=== PATIENT | male | born 1990 | race Caucasian/White ===

== ENCOUNTER 2020-06-16 03:37 | Emergency (ER) | payer OTHER, SELFPAY ==
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
--- NOTE | 2020-06-16 03:41 | DI.RAD.S_ITS ---
PROCEDURE: XR ELBOW RT MIN 3V INDICATIONS: trauma TECHNIQUE: 3 views of the elbow were acquired. COMPARISON: None. FINDINGS: Bones: No fractures or dislocations. No suspicious bony lesions. Soft tissues: No elbow joint effusion. No suspicious soft tissue calcifications. IMPRESSION: No fracture. No osseous lesion. If symptoms and/or clinical suspicion for pathology persists, further assessment with repeat radiographs (7-10 days) or advanced imaging (e.g. CT, MRI or bone scan) may be helpful. Dictated by: Cara Steiner MD, PhD on 06/16/2020 at 8:52 Approved by: Cara Steiner MD, PhD on 06/16/2020 at 8:52
[2020-06-16 03:45] VITALS: BP 153/83; PULSE 96; RESP 15; TEMP 37.5; O2SAT 98; BMI 28.2
[2020-06-16] MEDS: ACETAMINOPHEN 325 MG TABLET PO (03:46)
[2020-06-16] MEDS: IBUPROFEN 400 MG TABLET PO (03:46)
== END 2020-06-16 04:33 | disposition home or self-care (01) ==
LOC: ED 04:28
PROVIDERS: Emergency Provider Emergency Medicine
DX: S50.01XA Contusion of right elbow, initial encounter (principal); W19.XXXA Unspecified fall, initial encounter
CPT/HCPCS: 73080; 99283

== ENCOUNTER 2020-06-19 18:40 | Emergency (ER) | payer OTHER, SELFPAY ==
[2020-06-19 18:56] VITALS: PULSE 85; RESP 14; TEMP 36.8; O2SAT 98; BMI 28.2
--- NOTE | 2020-06-19 19:19 | ED.WOUNDLAC ---
HPI - Wound/Laceration General Chief Complaint: Wound/Laceration Stated Complaint: Right Elbow Pain and Swelling Time Seen by Provider: 06/19/20 19:01 Source: patient Mode of arrival: Ambulatory Limitations: no limitations History of Present Illness HPI narrative: 30-year-old otherwise healthy male who was seen here in the emergency department several days ago for what was reported to be a right elbow injury. Had an x-ray which did not show any fractures. 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 The initial injury was at the end of last month. He states that about 2 weeks after the injury he had a swelling of his right elbow. He has a family member who is a physician who told him that he had a bursitis. He states that that swelling has somewhat improved however over the past day or so has had increasing redness around the area. He again was evaluated by his family member who started him on Keflex. He outlined the area with a black marker. He has only had 1.5 days of the course of antibiotics. No fevers. He can bend his elbow without discomfort in the joint. Does have some limited range of motion secondary to the swelling. No wrist pain. Related Data Previous Rx's Medication Instructions Recorded sulfamethoxazole-trimethoprim 1 tab PO BID 14 Days #28 tab 06/19/20 [Bactrim DS] Allergies Allergy/AdvReac Type Severity Reaction Status Date / Time No Known Drug Allergies Allergy Verified 06/16/20 03:49 Review of Systems Constitutional Constitutional: Denies fever(s) Cardiovascular Cardiovascular: Denies chest pain and Denies dyspnea Respiratory Respiratory: Denies dyspnea Gastrointestinal Gastrointestinal: Denies abdominal pain Musculoskeletal Musculoskeletal: Denies tingling Comments: Right elbow pain and swelling Integumentary/Breasts Comments: Redness around the right elbow Neurologic Neurologic: Denies behavioral changes and Denies tingling Psychiatric Psychiatric: Denies behavioral changes Hematologic/Lymphatic Hematologic/Lymphatic: Denies easy bleeding and Denies easy bruising Patient History Medical History Healthy adult (Acute) Social History Smoking Status: Never smoker Smoking Status: Never smoker alcohol intake frequency: 0-2 drinks per day Substance Use Type: does not use Exam Initial Vital Signs Initial Vital Signs: Vital Signs Temperature 98.3 F 06/19/20 18:56 Pulse Rate 85 06/19/20 18:56 Respiratory Rate 14 06/19/20 18:56 Pulse Oximetry 98 06/19/20 18:56 Const General: cooperative and comfortable Limitations: mental status not altered HENAK Head: normal to inspection and normocephalic Resp Effort & Inspection: normal respiratory effort Cardio Pulses: radial pulses present on the right Skin Other: Patient with redness and warmth around the right elbow. No drainage. Neuro Sensory Exam: no sensory deficits noted Extrem Other: Patient does have swelling encompassing most of the posterior aspect of the right elbow. He is able to flex and extend the right elbow with minimal discomfort. The right wrist and right shoulder unremarkable. Psych Appearance: grossly normal and well kempt Course Orders Ordered: Discontinued Medications Trimethoprim/Sulfamethoxazole (Bactrim Ds) 1 tab PO NOW ONE Stop: 06/19/20 19:26 Last Admin: 06/19/20 19:34 Dose: 1 tab Documented by: ROMAIN Vital Signs Vital signs: Vital Signs - 8 hr 06/19/20 18:56 Temperature 98.3 F Pulse Rate 85 Respiratory Rate 14 Pulse Oximetry 98 MDM - Wound/Laceration MDM Narrative Medical decision making narrative: Low suspicion for fracture. I feel we can hold on further radiologic studies. Does have redness and swelling and warmth around his right elbow concerning for cellulitis. He has only had 1.5 days of the Keflex that was prescribed to him by family member. I have low suspicion for abscess. Feel we should add Bactrim to his course of antibiotics to treat for a septic bursitis. He was given his 1st dose here in the emergency department. Was given return precautions and follow-up instructions. He expressed understanding and agreement. Discharge Plan Departure Patient Disposition: Home Clinical Impression: Septic bursitis of elbow Qualifiers: Laterality: right Qualified Code(s): M71.121 - Other infective bursitis, right elbow Discharge Date/Time: 06/19/20 19:38 Instructions: DI for Bursitis Activity Restrictions/Additional Instructions: Recommend that you continue to take the Keflex that she started yesterday. The remainder of the prescription for the new antibiotic was electronically transmitted to [facility]. Take it as directed. You can shower like normal. Return to the emergency department for any new or worsening symptoms like we discussed. Prescriptions: New sulfamethoxazole-trimethoprim [Bactrim DS] 800-160 mg tablet 1 tab PO BID 14 Days Qty: 28 RF: 0
[2020-06-19] MEDS: TRIMETH/SULFA 160/800 (DS) TABLET 1 TAB PO (19:34)
== END 2020-06-19 19:38 | disposition home or self-care (01) ==
PROVIDERS: Emergency Provider Emergency Medicine
DX: M71.121 Other infective bursitis, right elbow (principal); Y99.0 Civilian activity done for income or pay
CPT/HCPCS: 99283

== ENCOUNTER 2020-06-20 13:51 | Emergency (ER) | payer OTHER, SELFPAY ==
[2020-06-20 13:53] VITALS: PULSE 127; RESP 22; TEMP 38.2; O2SAT 99
[2020-06-20 13:55] VITALS: BP 119/66
--- NOTE | 2020-06-20 13:58 | DI.RAD.S_ITS ---
PROCEDURE: XR CHEST 1V INDICATIONS: suspected sepsis TECHNIQUE: One view of the chest was acquired. COMPARISON: None. FINDINGS: Surgical changes and devices: None. Lungs and pleura: On this semiupright portable chest examination, no large pneumothorax or large pleural effusions are seen. No focal infiltrates are seen. Mediastinum: Mediastinal contours appear normal. Heart size is normal. Bones and chest wall: No suspicious bony lesions. Overlying soft tissues appear unremarkable. IMPRESSION: Clear lungs, without focal infiltrates. Dictated by: Michael Roach M.D. on 06/20/2020 at 13:45 Approved by: Michael Roach M.D. on 06/20/2020 at 13:46
--- NOTE | 2020-06-20 14:04 | ED_ITS ---
HPI - Fever General Chief Complaint: Fever Stated Complaint: fever/chills,here yesterday Time Seen by Provider: 06/20/20 14:04 Source: patient Mode of arrival: Ambulatory History of Present Illness HPI Narrative: 30-year-old otherwise healthy gentleman who presents now for his 3rd visit for elbow pain. Initial injury was sustained at work the with a fall and contusion to that elbow on June 02. Was seen in the emergency department on June 16 with x-rays done, small effusion in the elbow and no evidence of an elective non bursitis at that time. Returned on June 19 with a septic bursitis. He had started Keflex and Septra was added. He returns today noting fevers, chills and rigors all night with no decrease to the redness around the elbow. Does have continued full and nontender range of motion at the elbow suggesting no joint involvement. Related Data Previous Rx's Medication Instructions Recorded sulfamethoxazole-trimethoprim 1 tab PO BID 14 Days #28 tab 06/19/20 [Bactrim DS] Allergies Allergy/AdvReac Type Severity Reaction Status Date / Time No Known Drug Allergies Allergy Verified 06/16/20 03:49 Review of Systems Review of Systems Narrative: Pertinent positive and negative findings as per HPI Remainder of review of systems is otherwise unremarkable for Constitutional: weakness ENT: No sore throat, neck pain, ear pain CV: Chest pain, palpitations, dyspnea on exertion Respiratory: Cough, wheeze, dyspnea GI: Nausea, vomiting, diarrhea, change in bowel habits, black or bloody stools : Dysuria, hematuria, flank pain MS: Muscle weakness, numbness, joint swelling or warmth Neuro: Syncope, dizziness, tingling Patient History Medical History Healthy adult (Acute) Social History Smoking Status: Never smoker Smoking Status: Never smoker alcohol intake frequency: 0-2 drinks per day Substance Use Type: does not use Exam Narrative Exam Narrative: General: Flushed but in no acute distress. Able to give a complete and coherent history. Well-nourished well-developed HEENT: Moist mucous membranes, mildly injected sclera with reactive pupils, Neck: supple Respiratory: Lungs are clear to auscultation, no wheezing no rales no rhonchi. Full and symmetrical air movement Cardiac: Regular rate and rhythm no murmurs no bruits Abdomen: Soft nontender good bowel tones, no flank pain Skin: Warm and dry, erythema based around the right olecranon, minor healing skin breakdown as the reasonable source of a developing cellulitis. Full and nontender range of motion shoulder elbow wrist and fingers on the right side and completely neurovascularly intact. He has no axillary adenopathy. Edges of the cellulitis had been outlined yesterday and are clearly spreading beyond that with 3 days of Keflex and 24 hours of Bactrim on board. Neurologic: Grossly neurologically intact with no obvious asymmetries or abnormalities Extremities: well perfused Psych: Cooperative, appropriate insight and affect Initial Vital Signs Initial Vital Signs: Vital Signs Temperature 100.8 F H 06/20/20 13:53 Pulse Rate 127 H 06/20/20 13:53 Respiratory Rate 22 06/20/20 13:53 Pulse Oximetry 99 06/20/20 13:53 Course Orders Ordered: ED Orders 06/20/20 13:58 XR chest 1V Stat EKG-12 Lead Stat RT Consult Eval and Treat Now 06/20/20 14:05 Complete Blood Count AUTO DIFF Stat Comprehensive Metabolic Panel Stat Lactate (Lactic Acid) Stat Lipase Stat Partial Thromboplastin Time Stat Procalcitonin Stat Prothrombin Time INR Stat 06/20/20 14:30 Blood Culture Stat 06/20/20 14:43 Urine Culture Stat Urine Microscopic Stat Discontinued Medications Sodium Chloride (Normal Saline 0.9%) 1,000 mls @ 1,000 mls/hr IV BOLUS ONE Stop: 06/20/20 14:57 Last Infusion: 06/20/20 15:21 Dose: 0 mls/hr Documented by: Admin: 06/20/20 14:15 Dose: 1,000 mls/hr Documented by: JENS Ceftriaxone Sodium/Dextrose (Rocephin) 2 gm in 50 mls @ 100 mls/hr IV NOW ONE Stop: 06/20/20 14:48 Last Infusion: 06/20/20 15:12 Dose: 0 mls/hr Documented by: Admin: 06/20/20 14:36 Dose: 100 mls/hr Documented by: JENS Vancomycin HCl/Dextrose (Vancomycin) 1,500 mg in 300 mls @ 200 mls/hr IV NOW ONE Stop: 06/20/20 15:54 Last Infusion: 06/20/20 16:07 Dose: 0 mls/hr Documented by: Admin: 06/20/20 14:36 Dose: 200 mls/hr Documented by: JENS Ketorolac Tromethamine (Toradol) 15 mg IV NOW ONE Stop: 06/20/20 15:43 Last Admin: 06/20/20 15:46 Dose: 15 mg Documented by: JENS Vital Signs Vital signs: Vital Signs - 8 hr 06/20/20 13:53 06/20/20 13:55 06/20/20 15:12 Temperature 100.8 F H Pulse Rate 127 H 105 H Respiratory Rate 22 16 Blood Pressure 119/66 141/63 H Pulse Oximetry 99 99 MDM - Fever Medical Records Attestation: I reviewed the patient's medical records. Lab Data Attestation: I reviewed the patient's lab results. Result diagrams: 06/20/20 14:05 06/20/20 14:05 Labs: Lab Results 06/20/20 06/20/20 06/20/20 Range/Units 14:05 14:05 14:05 WBC 13.7 H (4.5-11.0) X10^3/uL RBC 4.72 (4.5-5.9) X10^6/uL Hgb 14.1 (13.5-17.5) g/dL Hct 41.0 (41-53) % MCV 86.8 (80-100) fL MCH 29.9 (26-34) PG MCHC 34.4 (30-36) % RDW 12.2 (11.6-14.8) % Plt Count 256 (150-400) X10^3/uL Neut % (Auto) 92.8 H (50-75) % Lymph % (Auto) 2.2 L (25-40) % Roosevelt % (Auto) 3.3 (3-14) % Eos % (Auto) 1.5 L (2-4) % Baso % (Auto) 0.2 (0-2) % Neut # (Auto) 51194 H (6870-3574) /uL Lymph # (Auto) 300 L (5272-6944) /uL Roosevelt # (Auto) 500 (0-900) /uL Eos # (Auto) 200 (0-450) /uL Baso # (Auto) 0 (0-100) /uL PT 14.5 H (10.1-12.7) SECONDS INR 1.3 (0.9-1.3) APTT 31 (26.4-36.2) SECONDS Sodium (137-145) mmol/L Potassium (3.4-5.1) mmol/L Chloride (98-107) mmol/L Carbon Dioxide (22-32) mmol/L BUN (9-20) mg/dL Creatinine (0.66-1.25) mg/dL Estimated GFR (>60) mL/min BUN/Creatinine Ratio (6-22) Glucose (70-100) mg/dL Lactate (0.7-2.1) mmol/L Calcium (8.4-10.2) mg/dL Total Bilirubin (0.2-1.3) mg/dL AST (17-59) IU/L ALT (<50) IU/L Alkaline Phosphatase (38-126) U/L Total Protein (6.3-8.2) g/dL Albumin (3.5-5.0) g/dL Globulin (1.7-4.1) g/dL Albumin/Globulin Ratio (1.0-2.8) Lipase (23-300) U/L Procalcitonin 0.72 H (<0.5) ng/mL Urine RBC (0-5/HPF) Urine WBC (0-5/HPF) Ur Squamous Epith Cells (0-5/HPF) Amorphous Sediment Urine Bacteria (None) Urine Mucus (Negative) Ur Culture Indicated? 06/20/20 06/20/20 06/20/20 Range/Units 14:05 14:05 14:43 WBC (4.5-11.0) X10^3/uL RBC (4.5-5.9) X10^6/uL Hgb (13.5-17.5) g/dL Hct (41-53) % MCV (80-100) fL MCH (26-34) PG MCHC (30-36) % RDW (11.6-14.8) % Plt Count (150-400) X10^3/uL Neut % (Auto) (50-75) % Lymph % (Auto) (25-40) % Roosevelt % (Auto) (3-14) % Eos % (Auto) (2-4) % Baso % (Auto) (0-2) % Neut # (Auto) (3142-3040) /uL Lymph # (Auto) (8385-5824) /uL Roosevelt # (Auto) (0-900) /uL Eos # (Auto) (0-450) /uL Baso # (Auto) (0-100) /uL PT (10.1-12.7) SECONDS INR (0.9-1.3) APTT (26.4-36.2) SECONDS Sodium 134 L (137-145) mmol/L Potassium 3.4 (3.4-5.1) mmol/L Chloride 98 (98-107) mmol/L Carbon Dioxide 26 (22-32) mmol/L BUN 19 (9-20) mg/dL Creatinine 1.39 H (0.66-1.25) mg/dL Estimated GFR > 60.0 (>60) mL/min BUN/Creatinine Ratio 13.7 (6-22) Glucose 126 H (70-100) mg/dL Lactate 1.3 (0.7-2.1) mmol/L Calcium 9.3 (8.4-10.2) mg/dL Total Bilirubin 0.9 (0.2-1.3) mg/dL AST 24 (17-59) IU/L ALT 23 (<50) IU/L Alkaline Phosphatase 86 (38-126) U/L Total Protein 7.6 (6.3-8.2) g/dL Albumin 4.4 (3.5-5.0) g/dL Globulin 3.2 (1.7-4.1) g/dL Albumin/Globulin Ratio 1.4 (1.0-2.8) Lipase 46 (23-300) U/L Procalcitonin (<0.5) ng/mL Urine RBC None seen (0-5/HPF) Urine WBC 5-10/hpf H (0-5/HPF) Ur Squamous Epith Cells 0-1 /hpf (0-5/HPF) Amorphous Sediment 1+ Urine Bacteria Few (2-10) H (None) Urine Mucus 2+ H (Negative) Ur Culture Indicated? 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 He is currently failing outpatient therapy with Keflex and Bactrim. Given ceftriaxone and vancomycin here in the emergency department. Heart rate has come down nicely. Pain is been adequately controlled. No evidence of sepsis. We discussed options for treatment and given the fact that he is otherwise young and healthy, lives close to the hospital and has reliable transportation to get back will discharge him home today with anticipation that he will return tomorrow. Will repeat ceftriaxone and based on labs tomorrow consider repeat vancomycin. Slight renal insufficiency will certainly need to be recheck tomorrow as well. Patient is are both comfortable with this plan. Asked them to return sometime around noon tomorrow for repeat blood work antibiotics. Discharge Plan Departure Patient Disposition: Home Clinical Impression: Septic bursitis of elbow Qualifiers: Laterality: right Qualified Code(s): M71.121 - Other infective bursitis, right elbow Cellulitis Qualifiers: Site of cellulitis: extremity Site of cellulitis of extremity: upper extremity Laterality: right Qualified Code(s): L03.113 - Cellulitis of right upper limb Instructions: DI for Cellulitis -- Adult Activity Restrictions/Additional Instructions: Thank you for coming in today The bursa and the skin around your elbow are infected but the elbow joint itself seems to be spared. You have had 3 days of Keflex and 24 hours of Bactrim and your symptoms are still not improving completely. Your blood work does show evidence of infection and mild dehydration. In the emergency room today received ceftriaxone and vancomycin. Both of these are good for 24 hours. I am going to send you home today but want you back around noon tomorrow. I want to repeat blood work, reexamined you and give you at least 1 additional dose of IV antibiotics. Using 400 mg of ibuprofen (2 odrp-[id number]-[id number] pills) and 1 Tylenol every 6 hours can be very helpful in controlling pain and fever. If you feel that you are getting worse this evening please return sooner than noon tomorrow Prescriptions: No Action sulfamethoxazole-trimethoprim [Bactrim DS] 800-160 mg tablet 1 tab PO BID 14 Days Qty: 28 RF: 0
[2020-06-20 14:15] LABS: Add Manual Diff / Slide Review NO; Basophils Absolute Auto 0 /uL (0-100); Basophils Percent Auto 0.2 % (0-2); Eosinophils Absolute Auto 200 /uL (0-450); Eosinophils Percent Auto 1.5 % (2-4); Hemoglobin 14.1 g/dL (13.5-17.5); Lymphocytes Absolute Auto 300 /uL (1100-4500); Lymphocytes Percent Auto 2.2 % (25-40); Mean Corpuscular HGB Conc 34.4 % (30-36); Mean Corpuscular Hemoglobin 29.9 PG (26-34); Mean Corpuscular Volume 86.8 fL (80-100); Monocytes Absolute Auto 500 /uL (0-900); Monocytes Percent Auto 3.3 % (3-14); Neutrophils Absolute Auto 12800 /uL (1500-7000); Neutrophils Percent Auto 92.8 % (50-75); Platelet Count 256 X10^3/uL (150-400); Red Blood Cell Count 4.72 X10^6/uL (4.5-5.9); Red Cell Distribution Width 12.2 % (11.6-14.8); White Blood Cell Count 13.7 X10^3/uL (4.5-11.0)
[2020-06-20] MEDS: SODIUM CHLORIDE 0.9% 1,000 ML 1000 ML IV (14:15)
[2020-06-20 14:22] LABS: INR 1.3 (0.9-1.3); Prothrombin Time 14.5 SECONDS (10.1-12.7)
[2020-06-20 14:24] LABS: PTT Partial Thromboplastin Tim 31 SECONDS (26.4-36.2)
[2020-06-20 14:28] LABS: Alanine Aminotransferase 23 IU/L (<50); Albumin 4.4 g/dL (3.5-5.0); Albumin Globulin Ratio 1.4 (1.0-2.8); Alkaline Phosphatase 86 U/L (38-126); Aspartate Aminotransferase 24 IU/L (17-59); BUN Creatinine Ratio 13.7 (6-22); Bilirubin Total 0.9 mg/dL (0.2-1.3); Blood Urea Nitrogen 19 mg/dL (9-20); Calcium 9.3 mg/dL (8.4-10.2); Carbon Dioxide 26 mmol/L (22-32); Chloride 98 mmol/L (98-107); Estimated Glomerular Filt Rate > 60.0 mL/min (>60); Globulin 3.2 g/dL (1.7-4.1); Glucose 126 mg/dL (70-100); HEMOLYSIS < 15 (0-50); Lipase 46 U/L (23-300); Potassium 3.4 mmol/L (3.4-5.1); Sodium 134 mmol/L (137-145); Total Protein 7.6 g/dL (6.3-8.2)
[2020-06-20 14:29] LABS: Lactate (Lactic Acid) 1.3 mmol/L (0.7-2.1)
[2020-06-20] MEDS: VANCOMYCIN 1,500 MG/300 ML FROZ.PIGGY 200 MG IV (14:36)
[2020-06-20] MEDS: CEFTRIAXONE 2 GM/50 ML FROZ.PIGGY IV (14:36)
[2020-06-20 14:42] LABS: Procalcitonin 0.72 ng/mL (<0.5)
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
[2020-06-20 15:12] VITALS: BP 141/63; PULSE 105; RESP 16; O2SAT 99
[2020-06-20 15:21] LABS: RBC Urine None Seen (0-5/HPF)
[2020-06-20 15:39] LABS: Amorphous Sediment Urine 1+; Bacteria Urine Few (2-10); Culture Indicated Urine Specimen Cultured; Mucus Urine 2+ (Negative); Squamous Epithelial Cell Urine 0-1 /HPF (0-5/HPF); WBC Urine 5-10/HPF (0-5/HPF)
[2020-06-20] MEDS: KETOROLAC 60 MG/2 ML VIAL 15 MG IV (15:46)
== END 2020-06-20 16:44 | disposition home or self-care (01) ==
PROVIDERS: Emergency Provider Emergency Medicine
DX: M71.121 Other infective bursitis, right elbow (principal); L03.113 Cellulitis of right upper limb; R50.9 Fever, unspecified; Y99.0 Civilian activity done for income or pay
CPT/HCPCS: 36415; 71045; 80053; 81003; 81015; 83605; 83690; 84145; 85025; 85610; 85730; 87040; 87086; 93005; 93010; 96365; 96366; 96367; 96375; 99284; J0696; J1885

== ENCOUNTER 2020-06-21 12:55 | Inpatient (IN) | payer OTHER, SELFPAY ==
[2020-06-21] VITALS (17 sets, daily range): BP systolic 87–134; BP diastolic 47–82; PULSE 58–125; RESP 9–20; TEMP 35.8–38.9; O2SAT 90–99; BMI 25.6
--- NOTE | 2020-06-21 13:28 | ED_ITS ---
HPI - Recheck/Abnormal Lab/Rx General Chief Complaint: Recheck/Abnormal Lab/Rx Stated Complaint: right elbow injury yest. needs iv's Time Seen by Provider: 06/21/20 13:23 Source: patient Mode of arrival: Ambulatory History of Present Illness HPI narrative: 30-year-old otherwise healthy gentleman who presents for repeat antibiotics after a 3rd visit yesterday for elbow pain and now increasing erythema. Initial injury was sustained at work the with a fall and contusion to that elbow on June 02. Was seen in the emergency department on June 16 with x-rays done, small effusion in the elbow and no evidence of an elective non bursitis at that time. Returned on June 19 with a septic bursitis. He had started Keflex and Septra was added. He returns 06/21 noting fevers, chills and rigors all night with no decrease to the redness around the elbow. Does have continued full and nontender range of motion at the elbow suggesting no joint involvement. He was given 2 g of IV ceftriaxone and vancomycin, lab work showed a white blood cell count 13.7 with left shift and a creatinine at 1.39 (no comparison for baseline). We debated hospital admission yesterday for failed oral antibiotic treatment for presumed septic bursitis without joint involvement, but decided to have him return to the emergency room did day and repeat labs and antibiotics. Notes continued fevers and the elbow itself is more swollen and more erythem atous today. He remains tachycardic. Today, he incidentally notes that his back is hurting more as he is moving about the bed cooperating with the physical exam. He notes that it is his lumbar spin e started centrally and now involves bilateral paraspinous areas. He is noting that he is having difficulty standing for extended periods and over the last day or to says that he has had more difficulty with starting his urine stream. The low back pain started about the same time and the cellulitic portion to the elbow pain started. He did not and mention did previously as everything else has been hurting so much with his fevers, and he is indeed was simply be related. And I am concerned that the in back pain, and knee were no and no and moderate presentation for the olecranon bursitis are all simultaneous. Related Data Previous Rx's Medication Instructions Recorded sulfamethoxazole-trimethoprim 1 tab PO BID 14 Days #28 tab 06/19/20 [Bactrim DS] Allergies Allergy/AdvReac Type Severity Reaction Status Date / Time No Known Drug Allergies Allergy Verified 06/16/20 03:49 Review of Systems Review of Systems Narrative: Remainder of review of systems including constitutional, ENT, card iovascular, respiratory, GI, , musculoskeletal, skin, neurologic and psychiatric systems reviewed and are unremarkable except as noted in HPI. Patient History Medical History Healthy adult (Acute) Septic bursitis of elbow (Acute) Social History Smoking Status: Never smoker Smoking Status: Never smoker alcohol intake frequency: 0-2 drinks per day Substance Use Type: does not use Exam Narrative Exam Narrative: General: Slightly flushed but in no acute distress. HEENT: Moist mucous membranes, normal sclera with reactive pupils, Neck: No JVD, supple Respiratory: Lungs are clear to auscultation, no wheezing no rales no rhonchi. Full and symmetrical air movement Cardiac: Tachycardic with regular rate and rhythm no murmurs Abdomen: Soft nontender good bowel tones, no flank pain Skin: Warm and dry, no rashes Neurologic: Grossly neurologically intact with no obvious asymmetries or abnormalities Extremities: Increased erythema and fluctuance at the right elbow still with no joint tenderness with flexion or extension spine: Some tenderness midline, L3 to L5 level with bilateral paraspinous lumbar tenderness. Pain in the low back with leg extension bilaterally. No saddle paresthesia. Psych: Cooperative, no evidence of altered mental status Initial Vital Signs Initial Vital Signs: Vital Signs Pulse Rate 125 H 06/21/20 13:04 Respiratory Rate 16 06/21/20 13:04 Blood Pressure 134/78 06/21/20 13:04 Pulse Oximetry 99 06/21/20 13:04 Course Orders Ordered: ED Orders 06/21/20 13:18 Complete Blood Count AUTO DIFF Stat Comprehensive Metabolic Panel Stat Lactate (Lactic Acid) Stat 06/21/20 13:37 Blood Culture Stat 06/21/20 13:50 COVID19 -ED/INPAT/OR/L&D Stat 06/21/20 13:56 MR lumbar spine wo/w con Stat Hydromorphone HCl (Dilaudid) 0.5 mg IV Q1HR PRN PRN Reason: pain Last Admin: 06/21/20 15:56 Dose: 0.5 mg Documented by: HEIDE Lactated Ringer's (Lactated Ringers) 1,000 mls @ 42 mls/hr IV CONT BLAINE Last Admin: 06/21/20 15:55 Dose: 42 mls/hr Documented by: HEIDE Discontinued Medications Acetaminophen (Tylenol) 975 mg PO NOW ONE Stop: 06/21/20 15:46 Last Admin: 06/21/20 15:56 Dose: 975 mg Documented by: HEIDE Ceftriaxone Sodium/Dextrose (Rocephin) 2 gm in 50 mls @ 100 mls/hr IV NOW ONE Stop: 06/21/20 13:38 Last Infusion: 06/21/20 14:54 Dose: 0 mls/hr Documented by: Admin: 06/21/20 13:52 Dose: 100 mls/hr Documented by: HEIDE Sodium Chloride (Normal Saline 0.9%) 1,000 mls @ 1,000 mls/hr IV BOLUS ONE Stop: 06/21/20 14:23 Last Infusion: 06/21/20 15:51 Dose: 0 mls/hr Documented by: Admin: 06/21/20 14:01 Dose: 1,000 mls/hr Documented by: HEIDE Vancomycin HCl/Dextrose (Vancomycin) 1,500 mg in 300 mls @ 200 mls/hr IV NOW ONE Stop: 06/21/20 15:29 Last Admin: 06/21/20 14:53 Dose: 200 mls/hr Documented by: HEIDE Scopolamine (Transderm-Scop) 1 patch TOP NOW ONE Stop: 06/21/20 15:46 Last Admin: 06/21/20 15:55 Dose: 1 patch Documented by: HEIDE Vancomycin HCl (Vancomycin Per Pharmacy) 1 request MISC NOW ONE Stop: 06/21/20 13:25 Vital Signs Vital signs: Vital Signs - 8 hr 06/21/20 13:04 06/21/20 13:17 06/21/20 15:34 Temperature 98.9 F Pulse Rate 125 H 108 H Respiratory Rate 16 14 Blood Pressure 134/78 118/57 L Pulse Oximetry 99 99 MDM - Recheck/Abnormal Lab/Rx Medical Records Attestation: I reviewed the patient's medical records. Lab Data Attestation: I reviewed the patient's lab results. Result diagrams: 06/21/20 13:18 06/21/20 13:18 Labs: Lab Results 06/21/20 06/21/20 06/21/20 Range/Units 13:18 13:18 13:18 WBC 9.6 (4.5-11.0) X10^3/uL RBC 4.63 (4.5-5.9) X10^6/uL Hgb 13.9 (13.5-17.5) g/dL Hct 40.4 L (41-53) % MCV 87.2 (80-100) fL MCH 30.0 (26-34) PG MCHC 34.4 (30-36) % RDW 12.3 (11.6-14.8) % Plt Count 248 (150-400) X10^3/uL Neut % (Auto) 87.9 H (50-75) % Lymph % (Auto) 3.9 L (25-40) % [place] % (Auto) 3.2 (3-14) % Eos % (Auto) 4.9 H (2-4) % Baso % (Auto) 0.1 (0-2) % Neut # (Auto) 8400 H (7782-6735) /uL Lymph # (Auto) 400 L (4168-2961) /uL [place] # (Auto) 300 (0-900) /uL Eos # (Auto) 500 H (0-450) /uL Baso # (Auto) 0 (0-100) /uL Sodium 133 L (137-145) mmol/L Potassium 4.0 (3.4-5.1) mmol/L Chloride 97 L (98-107) mmol/L Carbon Dioxide 28 (22-32) mmol/L BUN 13 (9-20) mg/dL Creatinine 1.24 (0.66-1.25) mg/dL Estimated GFR > 60.0 (>60) mL/min BUN/Creatinine Ratio 10.5 (6-22) Glucose 150 H (70-100) mg/dL Lactate 2.2 H (0.7-2.1) mmol/L Calcium 8.8 (8.4-10.2) mg/dL Total Bilirubin 0.6 (0.2-1.3) mg/dL AST 26 (17-59) IU/L ALT 22 (<50) IU/L Alkaline Phosphatase 71 (38-126) U/L Total Protein 7.1 (6.3-8.2) g/dL Albumin 3.9 (3.5-5.0) g/dL Globulin 3.2 (1.7-4.1) g/dL Albumin/Globulin Ratio 1.2 (1.0-2.8) COVID-19 PCR (Negative) 06/21/20 06/21/20 Range/Units 13:50 15:50 WBC (4.5-11.0) X10^3/uL RBC (4.5-5.9) X10^6/uL Hgb (13.5-17.5) g/dL Hct (41-53) % MCV (80-100) fL MCH (26-34) PG MCHC (30-36) % RDW (11.6-14.8) % Plt Count (150-400) X10^3/uL Neut % (Auto) (50-75) % Lymph % (Auto) (25-40) % [place] % (Auto) (3-14) % Eos % (Auto) (2-4) % Baso % (Auto) (0-2) % Neut # (Auto) (5507-2105) /uL Lymph # (Auto) (2448-2480) /uL Saunders # (Auto) (0-900) /uL Eos # (Auto) (0-450) /uL Baso # (Auto) (0-100) /uL Sodium (137-145) mmol/L Potassium (3.4-5.1) mmol/L Chloride (98-107) mmol/L Carbon Dioxide (22-32) mmol/L BUN (9-20) mg/dL Creatinine (0.66-1.25) mg/dL Estimated GFR (>60) mL/min BUN/Creatinine Ratio (6-22) Glucose (70-100) mg/dL Lactate 1.3 (0.7-2.1) mmol/L Calcium (8.4-10.2) mg/dL Total Bilirubin (0.2-1.3) mg/dL AST (17-59) IU/L ALT (<50) IU/L Alkaline Phosphatase (38-126) U/L Total Protein (6.3-8.2) g/dL Albumin (3.5-5.0) g/dL Globulin (1.7-4.1) g/dL Albumin/Globulin Ratio (1.0-2.8) COVID-19 PCR Negative (Negative) Imaging Data MRI lumbar spine: Radiologist's Impression: FINDINGS: Image quality: Diagnostic, with note made of motion artifact. Alignment and curvature: There is normal bony alignment. Marrow: Marrow is of normal overall signal. No acute vertebral body compression fractures. No suspicious marrow enhancement. Spinal cord: Conus medullaris terminates at the L1 level. Visualized spinal cord demonstrates normal signal, without suspicious enhancement. Paraspinous soft tissues: No paravertebral masses or abnormal enhancement. T12-L1: Normal appearance. L1-L2: Normal appearance. L2-L3: Normal appearance. L3-L4: Normal appearance. L4-L5: The disc height and disk signal are well-preserved. Mild generalized disc bulge is seen. Mild facet joint hypertrophy is seen. Mild to moderate bilateral neural foraminal narrowing is seen. Minimal central canal narrowing is seen. L5-S1: The disc height and disc signal are relatively well preserved. Mild to moderate disc bulge is seen, which is eccentric to the right. Moderate bilateral neural foraminal narrowing is seen. No significant central canal narrowing is seen. IMPRESSION: No findings of discitis, osteomyelitis, or epidural abscess can be seen. No abnormal enhancement is seen. Focal premature degenerative change is seen inferiorly. Dictated by: Michael Roach M.D. on 06/21/2020 at 14:08 MDM Narrative Medical decision making narrative: 30-year-old gentleman who clearly is failing outpatient therapy including IV ceftriaxone and vancomycin for 24 hours for septic bursitis of the elbow. Today mentions back pain and in the setting of fever myalgias and a rather odd presentation for the elbow possibility of an epidural abscess is entertained. He will be going to the operating room to have the bursa cleaned out, have talked with Dr. Ginette Jones. Will check an MRI of the lumbar spine to confirm absence of an epidural abscess. He will be admitted to her service. Blood cultures, lactate labs are all redrawn today. Slightly increased creatinine yesterday will re-evaluate with fluid resuscitation today. White count is down from yesterday, lactic acid was slightly increased but has responded nicely to fluids, no evidence of epidural abscess on MRI. Patient is going to the operating room and will be admitted to Dr. Jones. Safe for transfer to the operating room Discharge Plan Departure Patient Disposition: Admitted As Inpatient Clinical Impression: Bursitis, olecranon Qualifiers: Laterality: right Qualified Code(s): M70.21 - Olecranon bursitis, right elbow Cellulitis Qualifiers: Site of cellulitis: extremity Site of cellulitis of extremity: upper extremity Laterality: left Qualified Code(s): L03.114 - Cellulitis of left upper limb Back pain Qualifiers: Back pain location: low back pain Chronicity: acute Back pain laterality: bilateral Sciatica presence: without sciatica Qualified Code(s): M54.5 - Low back pain
[2020-06-21 13:33] LABS: Add Manual Diff / Slide Review NO; Basophils Absolute Auto 0 /uL (0-100); Basophils Percent Auto 0.1 % (0-2); Eosinophils Absolute Auto 500 /uL (0-450); Eosinophils Percent Auto 4.9 % (2-4); Hematocrit 40.4 % (41-53); Hemoglobin 13.9 g/dL (13.5-17.5); Lymphocytes Absolute Auto 400 /uL (1100-4500); Lymphocytes Percent Auto 3.9 % (25-40); Mean Corpuscular HGB Conc 34.4 % (30-36); Mean Corpuscular Volume 87.2 fL (80-100); Monocytes Absolute Auto 300 /uL (0-900); Monocytes Percent Auto 3.2 % (3-14); Neutrophils Absolute Auto 8400 /uL (1500-7000); Neutrophils Percent Auto 87.9 % (50-75); Platelet Count 248 X10^3/uL (150-400); Red Blood Cell Count 4.63 X10^6/uL (4.5-5.9); Red Cell Distribution Width 12.3 % (11.6-14.8); White Blood Cell Count 9.6 X10^3/uL (4.5-11.0)
[2020-06-21 13:42] LABS: Alanine Aminotransferase 22 IU/L (<50); Albumin 3.9 g/dL (3.5-5.0); Albumin Globulin Ratio 1.2 (1.0-2.8); Alkaline Phosphatase 71 U/L (38-126); Aspartate Aminotransferase 26 IU/L (17-59); BUN Creatinine Ratio 10.5 (6-22); Bilirubin Total 0.6 mg/dL (0.2-1.3); Blood Urea Nitrogen 13 mg/dL (9-20); Calcium 8.8 mg/dL (8.4-10.2); Carbon Dioxide 28 mmol/L (22-32); Chloride 97 mmol/L (98-107); Estimated Glomerular Filt Rate > 60.0 mL/min (>60); Globulin 3.2 g/dL (1.7-4.1); Glucose 150 mg/dL (70-100); HEMOLYSIS < 15 (0-50); Sodium 133 mmol/L (137-145); Total Protein 7.1 g/dL (6.3-8.2)
[2020-06-21 13:43] LABS: Lactate (Lactic Acid) 2.2 mmol/L (0.7-2.1)
[2020-06-21] MEDS: CEFTRIAXONE 2 GM/50 ML FROZ.PIGGY IV (13:52)
--- NOTE | 2020-06-21 13:56 | DI.MRI.S_ITS ---
PROCEDURE: MR LUMBAR SPINE WO/W CON INDICATIONS: concern for epidural abscess (fever, tachy, new pain) TECHNIQUE: Noncontrast sagittal T1 spin echo and T2 fast spin echo, sagittal STIR, axial T1 and T2 fast spin echo through the lumbar spine. In cases with scoliosis, additional coronal T2 fast spin echo may be performed. After the administration of contrast, sagittal and axial T1 spin echo with fat saturation through the lumbar spine. COMPARISON: None. FINDINGS: Image quality: Diagnostic, with note made of motion artifact. Alignment and curvature: There is normal bony alignment. Marrow: Marrow is of normal overall signal. No acute vertebral body compression fractures. No suspicious marrow enhancement. Spinal cord: Conus medullaris terminates at the L1 level. Visualized spinal cord demonstrates normal signal, without suspicious enhancement. Paraspinous soft tissues: No paravertebral masses or abnormal enhancement. T12-L1: Normal appearance. L1-L2: Normal appearance. L2-L3: Normal appearance. L3-L4: Normal appearance. L4-L5: The disc height and disk signal are well-preserved. Mild generalized disc bulge is seen. Mild facet joint hypertrophy is seen. Mild to moderate bilateral neural foraminal narrowing is seen. Minimal central canal narrowing is seen. L5-S1: The disc height and disc signal are relatively well preserved. Mild to moderate disc bulge is seen, which is eccentric to the right. Moderate bilateral neural foraminal narrowing is seen. No significant central canal narrowing is seen. IMPRESSION: No findings of discitis, osteomyelitis, or epidural abscess can be seen. No abnormal enhancement is seen. Focal premature degenerative change is seen inferiorly. Dictated by: Michael Roach M.D. on 06/21/2020 at 14:08 Approved by: Michael Roach M.D. on 06/21/2020 at 14:11
[2020-06-21] MEDS: SODIUM CHLORIDE 0.9% 1,000 ML 1000 ML IV (14:01)
[2020-06-21 14:22] LABS: COVID19 -Nasal RAPID Negative (Negative)
[2020-06-21] MEDS: VANCOMYCIN 1,500 MG/300 ML FROZ.PIGGY 200 MG IV (14:53)
[2020-06-21 15:28] LABS: Reflexed Lactate in 2 Hours Y
[2020-06-21] MEDS: SCOPOLAMINE 1 PATCH TOP (15:55)
[2020-06-21] MEDS: LACTATED RINGERS 1,000 ML 42 ML IV (15:55)
[2020-06-21] MEDS: HYDROMORPHONE 0.5 MG INJ IV (15:56)
[2020-06-21] MEDS: ACETAMINOPHEN 325 MG TABLET 975 MG PO ×2 (15:56→20:54)
[2020-06-21 16:22] LABS: Lactate 2HR (Lactic Acid Rflx) 1.3 mmol/L (0.7-2.1)
[2020-06-21] MEDS: LACTATED RINGERS 1,000 ML 21 ML IV (16:37)
--- NOTE | 2020-06-21 17:49 | P.HP_ITS ---
History of Present Illness History of Present Illness Date Patient Seen: 06/21/20 Time Patient Seen: 17:49 Date of Onset of Symptoms: 06/02/20 Chief complaint: right elbow yest. 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 He was taking down a suspect at that time landed on his right elbow and sustained an abrasion over his right elbow. He noted the acute onset of right elbow pain. He subsequently has been to [facility] Emergency Room 4 times for follow- up for increasing right elbow pain swelling and erythema. He had x-rays on 06/16/2020. He has been treated with a course of several different kinds of oral antibiotics as well as more recently IV antibiotics. He notes progressive worsening of his right elbow pain and progressive swelling. He also notes low- grade fevers and chills at home. Patient History Medical History Healthy adult (Acute) Septic bursitis of elbow (Acute) Family & Social History Social History: household members spouse Tobacco & Substance use: Smoking Status Never smoker alcohol intake never alcohol intake frequency 0-2 drinks per day Substance Use Type does not use Meds Home Medications and Allergies Home Medications Medication Instructions Recorded Confirmed Type sulfamethoxazole-trimethoprim 1 tab PO BID 14 Days #28 tab 06/19/20 06/21/20 Rx [Bactrim DS] cephalexin 250 mg PO QID 06/21/20 06/21/20 History Allergies Allergy/AdvReac Type Severity Reaction Status Date / Time No Known Drug Allergies Allergy Verified 06/21/20 16:39 Review of Systems Review of Systems Narrative: Mild fevers, no specific chills, no injuries other than the right elb ow Exam Vital Signs (past 8 hours): - 06/21/20 13:04 06/21/20 13:17 06/21/20 15:34 Temperature 98.9 F Pulse Rate 125 H 108 H Respiratory Rate 16 14 Blood Pressure 134/78 118/57 L Pulse Oximetry 99 99 06/21/20 16:28 06/21/20 16:31 Temperature 102.1 F H Pulse Rate 98 H 105 H Respiratory Rate 14 16 Blood Pressure 114/82 118/56 L Pulse Oximetry 96 94 Oxygen Delivery Method Room Air Narrative Exam Narrative: HEENT is benign lungs are clear cor regular rate and rhythm abdomen soft and benign examination of his right upper extremity shows an abrasion over the right elbow which is healing there is erythema there is obvious swelling in the right olecranon bursa and fluctuance, he is neurologically intact distally has full range of motion into his wrist and fingers, there is no pain with gentle range of motion of the right elbow Objective Labs Result Diagrams: 06/21/20 13:18 06/21/20 13:18 Labs: Laboratory Results - last 24 hr 06/21/20 06/21/20 06/21/20 13:18 13:18 13:18 WBC 9.6 RBC 4.63 Hgb 13.9 Hct 40.4 L MCV 87.2 MCH 30.0 MCHC 34.4 RDW 12.3 Plt Count 248 Neut % (Auto) 87.9 H Lymph % (Auto) 3.9 L [place] % (Auto) 3.2 Eos % (Auto) 4.9 H Baso % (Auto) 0.1 Neut # (Auto) 8400 H Lymph # (Auto) 400 L [place] # (Auto) 300 Eos # (Auto) 500 H Baso # (Auto) 0 Sodium 133 L Potassium 4.0 Chloride 97 L Carbon Dioxide 28 BUN 13 Creatinine 1.24 Estimated GFR > 60.0 BUN/Creatinine Ratio 10.5 Glucose 150 H Lactate 2.2 H Calcium 8.8 Total Bilirubin 0.6 AST 26 ALT 22 Alkaline Phosphatase 71 Total Protein 7.1 Albumin 3.9 Globulin 3.2 Albumin/Globulin Ratio 1.2 COVID-19 PCR 06/21/20 06/21/20 13:50 15:50 WBC RBC Hgb Hct MCV MCH MCHC RDW Plt Count Neut % (Auto) Lymph % (Auto) [place] % (Auto) Eos % (Auto) Baso % (Auto) Neut # (Auto) Lymph # (Auto) [place] # (Auto) Eos # (Auto) Baso # (Auto) Sodium Potassium Chloride Carbon Dioxide BUN Creatinine Estimated GFR BUN/Creatinine Ratio Glucose Lactate 1.3 Calcium Total Bilirubin AST ALT Alkaline Phosphatase Total Protein Albumin Globulin Albumin/Globulin Ratio COVID-19 PCR Negative Right elbow x-rays 06/15/2020 soft tissue swelling right olecranon bursa, no evidence of a fracture Assessment & Plan Assessment & Plan narrative: Septic right olecranon bursitis. More likely than not associated with his industrial injury of landing on his right elbow during a take down and sustaining an abrasion to his right elbow with subsequent infection of his olecranon bursa. I have recommended right elbow olecranon bursectomy and irrigation and debridement. He has clearly failed extensive cons ervative treatment including several different oral antibiotics as well as more recently IV antibiotics. The procedure alternatives risks benefits and complications were discussed in detail. For going to proceed this with this on a urgent basis.
--- NOTE | 2020-06-21 18:03 | PM.OP.1 ---
Operative Date/Time/Diagnoses Date of procedure: 06/21/20 Time of procedure: 18:03 Pre-op diagnosis: Septic right olecranon bursitis Post-op diagnosis: same Procedure & Clinicians Procedure: Right olecranon bursectomy Same procedure as scheduled: Yes Indications: This is a 30-year-old who sustained an abrasion to his right elbow which went onto the developed a right septic olecranon bursitis. Is brought the operating room for irrigation and debridement and an olecranon bursectomy. Surgeon: Ginette Jones Anesthesia Type: General Operative Notes Findings: Infected right elbow bursa Closure Type: primary Specimen(s): other (Gram stain culture and sensitivity) Estimated Blood Loss (mL): 150 Blood products transfused: none Tourniquet time (min): 21 Procedure in detail: Patient was brought to the operating room and underwent induction of a general anesthesia. His right upper extremities prepped draped standard sterile fashion. A high arm tourniquet was placed in elevated to 250 mm of mercury. A lateral incision was made in the region of the olecranon bursa. Dissection was carried out through skin and subcutaneous tissues. There was fluid and obvious infected bursal tissue material in the olecranon bursa. Olecranon bursectomy was performed without difficulty. All grossly infected tissue was carefully debrided. The wound was meticulously irrigated with normal saline. A drain was placed. The wound was closed with interrupted nylon and dressed sterilely. Patient tolerated the procedure well was transferred recovery room in satisfactory condition. Complications none. The drain was sewn in with a nylon. Complications: none Post-operative Condition: stable Disposition: Acute Care Plan for aftercare: IV antibiotics for 24-48 hours period leave drain in until Friday. Drain is sewn in please remove suture prior to removing the drain. Probable discharge to home on Friday on oral antibiotics. Check sensitivities.
[2020-06-21] MEDS: BUPIVACAINE 0.5% (PF) VIAL 30 ML INJ (19:21)
[2020-06-21] MEDS: SODIUM CHLORIDE 0.9% 1,000 ML, GENTAMICIN 80 MG IRR (19:21)
[2020-06-21] MEDS: BACITRACIN 28 GM OINT 1 APPLIC TOP (19:23)
--- NOTE | 2020-06-21 19:49 | SUR.PHASEI ---
1935 late entry Mostly sleeping, arouses easily and spontaneously. to bedside. Pt continues to deny pain/nausea. Skin warm and dry, resp unlabored.
--- NOTE | 2020-06-21 20:09 | SUR.PHASEI ---
2000 to room 212, Pt arouses easily, continues to deny pain/nausea. present. CMS unchanged, dressing remains CDI. Bed down and locked, call light within reach, SCDs on. O2 at 2LNP, VSS. Stable.
[2020-06-21] MEDS: LACTATED RINGERS 1,000 ML 125 ML IV (20:28)
[2020-06-21] MEDS: CEFAZOLIN 2 GM/100 ML FROZ.PIGGY IV (20:54)
[2020-06-21] MEDS: ASPIRIN EC 81 MG TABLET PO (20:54)
[2020-06-21] MEDS: VANCOMYCIN 1,000 MG/200 ML PIGGYBACK 200 MG IV (22:30)
[2020-06-22] MEDS: HYDROCODONE/ACET 5/325 TABLET 1 TAB PO (00:03)
[2020-06-22] MEDS: CEFAZOLIN 2 GM/100 ML FROZ.PIGGY IV ×3 (04:31→19:28)
[2020-06-22 04:35] VITALS: BP 102/42; PULSE 52; RESP 18; TEMP 36.2; O2SAT 100
[2020-06-22 06:10] LABS: Hematocrit 36.3 % (41-53); Hemoglobin 12.5 g/dL (13.5-17.5); Mean Corpuscular HGB Conc 34.3 % (30-36); Mean Corpuscular Hemoglobin 30.1 PG (26-34); Mean Corpuscular Volume 87.6 fL (80-100); Platelet Count 221 X10^3/uL (150-400); Red Blood Cell Count 4.14 X10^6/uL (4.5-5.9); Red Cell Distribution Width 12.6 % (11.6-14.8); White Blood Cell Count 9.3 X10^3/uL (4.5-11.0)
[2020-06-22] MEDS: VANCOMYCIN 1,000 MG/200 ML PIGGYBACK 200 MG IV ×2 (06:45→16:27)
[2020-06-22 08:00] VITALS: BP 110/51; PULSE 62; RESP 15; TEMP 36.4; O2SAT 98
[2020-06-22] MEDS: ACETAMINOPHEN 325 MG TABLET 975 MG PO ×3 (08:30→20:10)
[2020-06-22] MEDS: ASPIRIN EC 81 MG TABLET PO ×2 (08:31→20:10)
--- NOTE | 2020-06-22 10:20 | PT.IIE ---
Current Diagnoses Other infective bursitis, unspecified elbow (06/21/20) Surgery Performed Operation Date: 06/21/20 17:30 Actual Procedures p Olecranon Bursectomy(Right) - Ginette Jones MD Medical History (Last Reviewed 06/21/20 @ 18:00 by Ginette Jones MD) Healthy adult (Acute) Septic bursitis of elbow (Acute) Physical Therapy Inpatient Evaluation/Re-Eval M1 PT/OT-IP Prior Functional Status Start: 06/22/20 11:44 Freq: NEEDED Status: Active Protocol: Document 06/22/20 10:20 AB (Rec: 06/22/20 11:54 AB [id number]) Medical Review Prior Functional Status Medical History Reviewed Yes Communication able to make needs known Mobility and Gait pt stated that he is independent with all mobilities and ambulation without AD Social History Household Members spouse,children Living Arrangements Apartment/Condo Number of Floors (Floors) Two Floors Number of Stairs To Enter/Railing? 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 PT-IP Current Condition Start: 06/22/20 11:44 Freq: NEEDED Status: Active Protocol: Document 06/22/20 10:20 AB (Rec: 06/22/20 11:54 AB [id number]) Physical Therapy Current Condition Current Condition Evaluation Date 06/22/20 Treatment Diagnosis R elbow septic bursitis s/p bursectomy; difficulty in walking Onset Date 06/21/20 Precautions Brace R elbow on soft cast M3 PT-IP Subjective Start: 06/22/20 11:44 Freq: NEEDED Status: Active Protocol: Document 06/22/20 10:20 AB (Rec: 06/22/20 11:54 AB [id number]) Subjective Physical Therapy Visit Type Type Initial Evaluation Visit Start Time 10:20 Visit Stop Time 10:30 Total Visit Minutes 10 Number of MANAGER MSW Visits 0 Physical Therapy Visit Comments Patient Comments pt is agreeable to do PT Therapy Pain Assessment Pain When Pain Assessed At Rest Pain Present Pain Present Pain Reported Location Right Elbow Intensity 3 Scale Used Numeric (0 - 10) Pain Management Techniques Modification of Treatment,Re- positioning,Timing of Activity with Medications M4 PT-IP Mobility and Gait Start: 06/22/20 11:44 Freq: NEEDED Status: Active Protocol: Document 06/22/20 10:20 AB (Rec: 06/22/20 11:54 AB [email or web address]) PT-Bed Mobility Assessment Supine to Sit Supine to Sit Independent Sit to Supine Sit to Supine Independent Scooting Scooting to Edge of Bed Independent PT-Transfer Assessment Sit to and From Stand Sit to and from Stand Independent Equipment Transfer Assistive Device None Transfers Transfer Destination Toilet Transfer Technique ambulated without AD Transfer Ability Level of Assist Independent Comments Mobility Comments found pt up and wanting to use the toilet. able to ambulate into the toilet without AD independent and completing toileting without assistance. educated pt on elbow precautions and pt understood. completed bed mobility supine<>sit independent. agreed to walk in the hallway and ambulated without AD towards the stairs independent . completed up/down steps without use of rails modified independent. pt ambulated back to his room independent. completed tinetti balance assessment: . left pt in room and agreed to ask for assistance when needed . Gait Assessment Gait Gait Assistance Required: Independent Distance (Feet) 300 Able to Maintain Weight Bearing Status Yes During Gait Assistive Devices Assistive Device None Gait Deviations General Gait Pattern Within Normal Limits Factors Limiting Gait Function Factors Limiting Gait Function Pain Stair Climbing Assessment Evaluation Level of Assist On Stairs Independent Devices Stair Climbing Assistive Devices None Technique/Endurance Stair Climbing Direction Ascend and Descend Stair Climbing Technique Step Over Step Number of Steps Climbed 3 Query Text: Stair Climbing Set # Repetitions (reps) 3 PT-Balance Assessment Sitting Balance and Reactions Static Sitting Balance Ability Normal Dynamic Sitting Balance Ability Normal Standing Balance and Reactions Static Standing Balance Ability Normal Dynamic Standing Balance Ability Good Functional Assessments Functional Tests Tinetti Balance and Gait Assessment which relates to low fall risk M5 PT-IP Objective Assessments Start: 06/22/20 11:44 Freq: NEEDED Status: Active Protocol: Document 06/22/20 10:20 AB (Rec: 06/22/20 11:54 AB [email or web address]) Orientation Orientation/Cognition Level of Alertness Alert Orientation Name,Age,Birthday,Month,Date, Year,Day of Week,Place, Situation Language Function Ability No Deficits Noted Safety Awareness Understands Safety Issues Memory Description No Deficits Noted Gross Range of Motion Lower Extremity ROM Assessment Within Functional Limits Strength Lower Extremity Strength Assessment Within Functional Limits Coordination Assessment Gross Coordination Gross Coordination WNL Sensation Assessment Sensation Gross Sensation WNL Muscle Tone Muscle Tone WNL Yes M6 PT-IP Treatment Start: 06/22/20 11:44 Freq: NEEDED Status: Active Protocol: Document 06/22/20 10:20 AB (Rec: 06/22/20 11:54 AB [email or web address]) Physical Therapy Treatment Education Education Provided Precautions,Safety M7 PT-IP Assessment and Plan Start: 06/22/20 11:44 Freq: NEEDED Status: Active Protocol: Document 06/22/20 10:20 AB (Rec: 06/22/20 11:54 AB [email or web address]) PT Summary Assessment and Plan Potential Rehabilitation Potential Excellent Status of Condition at Evaluation Stable Summary Impairments Pain Assessment Summary PT eval completed and pt is independent with all mobilities and no further PT intervention indicated at this time. Frequency of Treatment Frequency Of Treatment Discharge Recommendations To Nursing Amount of Assist Needed Independent Discharge Recommendations PT Discharge Recommendations Home,Outpatient PT Transportation Needs at Discharge Private Vehicle
[2020-06-22 10:39] VITALS: BP 114/58; PULSE 61; RESP 16; TEMP 36.6; O2SAT 98
--- NOTE | 2020-06-22 10:39 | P.PN_ITS ---
Subjective Subjective Date Patient Seen: 06/22/20 Time Patient Seen: 10:45 Interval history: POD #1 s/p irrigation and debridement and an olecranon bursectomy with Dr. Jones. Patient's pain is well controlled. Very minimal output of drain. Exam Vital Signs (past 8 hours): - 06/22/20 04:35 06/22/20 08:00 Temperature 97.2 F L 97.5 F L Pulse Rate 52 L 62 Respiratory Rate 18 15 Blood Pressure 102/42 L 110/51 L Pulse Oximetry 100 98 Oxygen Delivery Method Nasal Cannula Oxygen Flow Rate 0 Narrative Exam Narrative: Patient lying in bed in no acute distress. Alert orient x3. [place] Service Captain strength is strong and equal. Radial pulses symmetrical. Sensation intact light touch throughout bilateral upper extremity. Objective Labs Result Diagrams: 06/22/20 05:25 06/21/20 13:18 Labs: Laboratory Results - last 24 hr 06/21/20 06/21/20 06/21/20 13:18 13:18 13:18 WBC 9.6 RBC 4.63 Hgb 13.9 Hct 40.4 L MCV 87.2 MCH 30.0 MCHC 34.4 RDW 12.3 Plt Count 248 Neut % (Auto) 87.9 H Lymph % (Auto) 3.9 L Clare % (Auto) 3.2 Eos % (Auto) 4.9 H Baso % (Auto) 0.1 Neut # (Auto) 8400 H Lymph # (Auto) 400 L Clare # (Auto) 300 Eos # (Auto) 500 H Baso # (Auto) 0 Sodium 133 L Potassium 4.0 Chloride 97 L Carbon Dioxide 28 BUN 13 Creatinine 1.24 Estimated GFR > 60.0 BUN/Creatinine Ratio 10.5 Glucose 150 H Lactate 2.2 H Calcium 8.8 Total Bilirubin 0.6 AST 26 ALT 22 Alkaline Phosphatase 71 Total Protein 7.1 Albumin 3.9 Globulin 3.2 Albumin/Globulin Ratio 1.2 COVID-19 PCR 06/21/20 06/21/20 06/22/20 13:50 15:50 05:25 WBC 9.3 RBC 4.14 L Hgb 12.5 L Hct 36.3 L MCV 87.6 MCH 30.1 MCHC 34.3 RDW 12.6 Plt Count 221 Neut % (Auto) Lymph % (Auto) Clare % (Auto) Eos % (Auto) Baso % (Auto) Neut # (Auto) Lymph # (Auto) Clare # (Auto) Eos # (Auto) Baso # (Auto) Sodium Potassium Chloride Carbon Dioxide BUN Creatinine Estimated GFR BUN/Creatinine Ratio Glucose Lactate 1.3 Calcium Total Bilirubin AST ALT Alkaline Phosphatase Total Protein Albumin Globulin Albumin/Globulin Ratio COVID-19 PCR Negative Assessment & Plan Post-op Postoperative Procedures: Procedures Operation Date: 06/21/20 17:30 Actual Procedures Side Surgeon p Olecranon Bursectomy Right Ginette A MD Robert IV antibiotics for 24-48 hours period, and will leave drain in until Friday. Drain is sewn in please remove suture prior to removing the drain. Probable discharge to home on Friday on oral antibiotics. Check sensitivities. Quality VTE Deep Vein Thrombosis/Pulmonary Embolism Present on Admission: No
[2020-06-22 15:15] VITALS: BP 124/59; PULSE 66; RESP 16; TEMP 36.7; O2SAT 97
--- NOTE | 2020-06-22 15:17 | CM.IDA ---
Initial DCP Assessment Note Patient is a 30 yo male, resident of [place]. Patient presents after failed outpt therapy for septic bursitis of the elbow..an infection that developed after a fall/injury while working for the [facility] PCP: Not listed Payer: L+I According to Sharan Dennison, patient is POD#1 from wash out of that septic elbow and culture results have not come back. Jesi hopeful that patient will DC home on oral abx after approx 48 hrs IV abx. Met w/patient this afternoon and introduced SW role. 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 Patient walking and completing ADLs indp here, cleared by PT for return home, no addtl. acute PT required. 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 P: DC home w/family expected, hopefully on oral abx and close outpt f/u NOLVIA Zaman Discharge Planning/Care Management CM Discharge Assessment Start: 06/22/20 15:04 Freq: Status: Active Protocol: Document 06/22/20 15:04 IVAN (Rec: 06/22/20 15:16 IVAN [id number]) Discharge Planning Assessment Assigned Electronic Die Maker NOLVIA Han DPOA/Assigned Designee Name Ellie Machdao, spouse Contact Information [phone] Advance Directives? 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 Yes Caregiver for Another Yes: Children Barriers to Discharge No Comment Likely close outpt f/u, po abx vs IVabx ? Discharge Plan Home Transportation Arrangement Family Referrals Initiated None needed Additional Comment At this time
[2020-06-22 16:09] LABS: Vancomycin Trough 6.7 ug/mL (10-20)
[2020-06-22] MEDS: VANCOMYCIN TROUGH 1 REQUEST MISC (16:29)
[2020-06-22] MEDS: VANCOMYCIN 500 MG in SODIUM CHLORIDE 0.9% 100 ML IV (17:22)
[2020-06-22 19:50] VITALS: BP 116/55; PULSE 55; RESP 16; TEMP 37.2; O2SAT 98
[2020-06-23 00:17] VITALS: BP 102/40; PULSE 45; RESP 16; TEMP 35.9; O2SAT 97
[2020-06-23] MEDS: VANCOMYCIN 1,500 MG/300 ML FROZ.PIGGY 200 MG IV ×2 (00:57→08:37)
[2020-06-23] MEDS: ACETAMINOPHEN 325 MG TABLET 975 MG PO ×2 (00:58→08:36)
[2020-06-23] MEDS: CEFAZOLIN 2 GM/100 ML FROZ.PIGGY IV (04:05)
[2020-06-23 04:44] VITALS: BP 102/55; PULSE 66; RESP 16; TEMP 36.1; O2SAT 98
--- NOTE | 2020-06-23 07:25 | PM.PNPO.1 ---
Subjective Subjective Date Patient Seen: 06/23/20 Time Patient Seen: 07:26 Interval history: Patient's pain is mild. Denies fever chills. No nausea vomiting. Otherwise without complaints. Exam Vital Signs (past 8 hours): - 06/23/20 00:17 06/23/20 04:44 Temperature 96.7 F L 96.9 F L Pulse Rate 45 L 66 Respiratory Rate 16 16 Blood Pressure 102/40 L 102/55 L Pulse Oximetry 97 98 Oxygen Delivery Method Nasal Cannula Oxygen Flow Rate 0 Narrative Exam Narrative: 30-year-old male resting comfortably in bed in no apparent distress. Drains in place. No output reported last shift. Dressing is clean, dry and intact. Motor functions intact distal right upper extremity with good finger motion and wrist flexion and extension. Sensation grossly intact to light touch. Good capillary refill. Objective Labs Result Diagrams: 06/22/20 05:25 06/21/20 13:18 Labs: Laboratory Results - last 24 hr 06/22/20 15:27 Vancomycin Trough 6.7 L Assessment & Plan Post-op Postoperative Procedures: Procedures Operation Date: 06/21/20 17:30 Actual Procedures Side Surgeon p Olecranon Bursectomy Right Ginette Marco Antonio Jones MD Postop day 2 status post right leg and a bursectomy secondary to septic right olecranon bursitis. Per Dr. Jones IV antibiotics for 24-48 hrs. Culture results showed no organisms seen, preliminary, anaerobic culture pending. Possible discharge home today on oral antibiotics pending sensitivities. Drain can be discontinued. Quality VTE Deep Vein Thrombosis/Pulmonary Embolism Present on Admission: No
[2020-06-23 08:12] VITALS: BP 120/75; PULSE 56; RESP 14; TEMP 36; O2SAT 98
[2020-06-23] MEDS: ASPIRIN EC 81 MG TABLET PO (08:35)
[2020-06-23] MEDS: SODIUM CHLORIDE 0.9% FLUSH 10 ML IV (08:37)
--- NOTE | 2020-06-23 10:04 | P.DS_ITS ---
History of Present Illness History of Present Illness Chief complaint: right elbow yest. 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 He was taking down a suspect at that time landed on his right elbow and sustained an abrasion over his right elbow. He noted the acute onset of right elbow pain. Sol bruner subsequently has been to [facility] Emergency Room 4 times for follow- up for increasing right elbow pain swelling and erythema. He had x-rays on 06/16/2020. He has been treated with a course of several different kinds of oral antibiotics as well as more recently IV antibiotics. He notes progressive worsening of his right elbow pain and progressive swelling. He also notes low- grade fevers and chills at home. Discharge Providers Provider Date of admission: 06/21/20 16:51 Discharge Date: 06/23/20 Consults: 06/21/20 20:09 Consult to Discharge Planning Routine Comment: Consult to Physical Therapy Evaluate & Treat Comment: Physician Instructions: Evaluate and Treat Consult to Respiratory Therapy Evaluate & Treat Comment: Physician Instructions: Evaluate and treat Discharge provider: Ginette Jones MD Summary Hospital Course Discharge Diagnosis: Septic right olecranon bursitis Hospital Course: Al was admitted with a septic olecranon bursitis. He is brought to the operating room and underwent a right olecranon bursectomy. He was treated for 48 hours with IV antibiotics. He tolerated the procedure without difficulty. He did well with IV antibiotics had resolution of his cell ulitis and elbow erythema and was felt to be stable for discharge on 06/23/2020. Status at Discharge Cognitive/behavioral status at discharge: oriented Functional status at discharge: independent ambulation Overall status at discharge: patient is progressing back to baseline Time Spent with Patient Time spent: Less than 30 minutes Exam Vital Signs (past 8 hours): - 06/23/20 04:44 06/23/20 08:12 Temperature 96.9 F L 96.8 F L Pulse Rate 66 56 L Respiratory Rate 16 14 Blood Pressure 102/55 L 120/75 Pulse Oximetry 98 98 Oxygen Delivery Method Room Air Oxygen Flow Rate 0 Narrative Exam Narrative: HEENT is benign he has has good range of motion in his right el bow is erythema is improving his wound is healing. Objective Labs Result Diagrams: 06/22/20 05:25 06/21/20 13:18 Labs: Laboratory Results - last 24 hr 06/22/20 15:27 Vancomycin Trough 6.7 L Discharge Assessment & Plan Assessment and Plan Assessment: Doing well after olecranon bursectomy. Plan is to discharge to home to continue on oral antibiotics Septra are Bactrim 1 twice a day for 10-14 days and to follow up in 10-14 days. 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 Discharge Plan Discharge Plan Patient Disposition: Home Discharge orders & Medications Prescriptions: New hydrocodone-acetaminophen 5-325 mg Tablet 1 tab PO Q4HR PRN (Reason: Pain, Mild (1-3)) Qty: 10 RF: 0 Continued sulfamethoxazole-trimethoprim [Bactrim DS] 800-160 mg tablet 1 tab PO BID 14 Days Qty: 28 RF: 0 Discontinued cephalexin 250 mg capsule 250 mg PO QID RF: 0 Follow up/Referrals: Ginette Jones MD [Physician] - () Discharge Health Status Multidrug resistant organism: No MDRO Diet/Activity/Treatments Diet: Diet as Tolerated Skin/Wound/Dressing Care Report to your healthcare provider any signs of infection, such as:: chills, fever, night sweats, increased pain, unusual drainage and unusual redness Dressing: ok to change dressing as needed. ok to shower in 2 days. Visit Report/Discharge Packet Instructions: DI for Postoperative Pain, DI for Prescription Opioid Use, DI for Bursectomy, Hydrocodone/Acetaminophen (By mouth) Stand Alone Forms: Surgery Discharge Visit Report Forms: Patient Portal/API, Stroke Signs & Symptoms Quality VTE Deep Vein Thrombosis/Pulmonary Embolism Present on Admission: No
--- NOTE | 2020-06-23 10:09 | PC.NURSE ---
Addendum entered by Mattie Johnson R.N. 06/23/20 10:59: Discharge summary packet reviewed with pt and his spouse at bedside. Pt states having approx 2 weeks left of BActrim antibiotic at home and pt aware to continue dose twice daily. Pt did not want any additional pain meds prior to discharge. Aware of S/S of infection, extra gauze given for dressing change, morenita wrap new this morning and is CDI. No further voiced concerns. Aware of follow up appointment, prescription for [place] as needed. Pt states is ready to go home. Pt left unit at 1100 via wheelchair in no distress with [employer]ING LAYER escort. Pt's present to drive pt home. Original Note: Day Shift- Dr. Jones removed hemovac drain around 0950 and performed dressing changed to right elbow incision. Pt reports 2.5-3/10 pain aching and dull throbbing to right elbow. pain management plan discussed. Pain controlled with scheduled Acetaminophen at this time. Pt denies any numbness or tingling to right arm or hand. Radial pulse strong. Pt plans to discharge home SG, S.O present in room to drive pt home.
== END 2020-06-23 11:00 | disposition home or self-care (01) | DRG 317 ==
LOC: ED 16:26 → AC 06-22 08:45
PROVIDERS: Admitting Provider Orthopaedic Surgery; Emergency Provider Emergency Medicine; Visit Provider Orthopaedic Surgery
PROC: 0MB30ZZ Excision of Right Elbow Bursa and Ligament, Open Approach (ICD-10-PCS; principal; 2020-06-21 17:30)
DX: M71.121 Other infective bursitis, right elbow (principal); Y99.0 Civilian activity done for income or pay
CPT/HCPCS: 36415; 72158; 80053; 80202; 83605; 85025; 85027; 87040; 87070; 87075; 87077; 87147; 87186; 87205; 87635; 96365; 96366; 96367; 96375; 97161; 99284; A9579; J0330; J0690; J0696; J1100; J1170; J1885; J2250; J2405; J2704; J3010; J3370

== ENCOUNTER 2020-07-09 03:47 | Emergency (ER) | payer OTHER, SELFPAY ==
[2020-06-21 20:38] VITALS: BMI 25.6
--- NOTE | 2020-07-09 03:48 | ED_ITS ---
HPI - Skin/Abscess/Foreign Bdy General Chief complaint: Allergic Reaction Stated complaint: states rash all over body Time Seen by Provider: 07/09/20 03:48 Source: patient Mode of arrival: Ambulatory Limitations: no limitations History of Present Illness HPI narrative: 30-year-old male nonsmoker with noncontributory medical history presents with a chief complaint of 3 days a generalized pruritic rash that seems to have started at his belt line and now includes arms, abdomen, back and legs. He denies any facial swelling, trouble swallowing, swelling of tongue, lips or throat. He denies any difficulty in breathing or wheezing. He states he had been taking various antihistamines with minimal relief and had tried a steroid lotion at the suggestion of a family member, also without relief. He was recently seen and evaluated for an infected bursa in his elbow and had been on Bactrim up until about a week ago. He has no involvement of the mucous membranes in his mouth, tongue or throat. He denies any new foods or pets, but does state he thinks his started using a new laundry detergent recently. complaint: rash Onset (ago): day(s) Tetanus up to date: yes Location: generalized Severity: moderate Quality: pruritic Relieving factors: none Exacerbating factors: none Context: new medication Treatments prior to arrival: OTC topical medication Related Data Previous Rx's Medication Instructions Recorded hydrocodone-acetaminophen 1 tab PO Q4HR PRN #10 tab 06/23/20 prednisone See Rx Instructions .ROUTE 07/09/20 .COMPLEX #30 tab Allergies Allergy/AdvReac Type Severity Reaction Status Date / Time No Known Drug Allergies Allergy Verified 06/21/20 16:39 Review of Systems Constitutional Constitutional: Denies chills, Denies fatigue, Denies fever(s), Denies frequent falls, Denies lethargy and Denies weakness Eyes Eyes: Denies change in vision, Denies eye discharge, Denies irritation and D enies loss of vision ENT Ears, Nose, Mouth, and Throat: Denies change in voice, Denies dizziness, Denies neck pain, Denies sore throat and Denies throat swelling Cardiovascular Cardiovascular: Denies chest pain, Denies irregular heart rhythm, Denies lightheadedness, Denies palpitations, Denies dyspnea, Denies dyspnea on exertion and Denies orthopnea Respiratory Respiratory: Denies cough, Denies dyspnea, Denies dyspnea on exertion and Denies wheezing Gastrointestinal Gastrointestinal: Denies abdominal pain, Denies change in bowel habits, Denies diarrhea, Denies nausea and Denies vomiting Musculoskeletal Musculoskeletal: Denies neck pain and Denies numbness Integumentary/Breasts Skin/Breast: Denies pruritus, Denies erythema, Reports rash and Denies wounds Neurologic Neurologic: Denies behavioral changes, Denies confusion, Denies dizziness, Denies frequent falls, Denies loss of vision, Denies numbness and Denies weakness Psychiatric Psychiatric: Denies anxiety, Denies behavioral changes, Denies confusion, Denies depression, Denies homicidal ideation and Denies suicidal ideation Endocrine Endocrine: Denies fatigue, Denies flushing and Denies palpitations Hematologic/Lymphatic Hematologic/Lymphatic: Denies easy bruising Allergic/Immunologic Allergic/Immunologic: Denies urticaria, Denies throat swelling and Denies wheezing Patient History Medical History Healthy adult (Acute) Septic bursitis of elbow (Inactive) Social History household members: spouse and children Smoking Status: Never smoker alcohol intake: never Smoking Status: Never smoker alcohol intake frequency: 0-2 drinks per day Substance Use Type: does not use Exam Narrative Exam Narrative: GEN: AOx3 and in mild distress EYES: Pupils are equal, round, and reactive to light and accommodation. Extraoccular muscles are intact bilaterally. There is no subconjunctival h emorrhage or exudate. HEENT: No facial swelling. No tongue, lip, or throat swelling. No mucosal ulcers or sloughing CHEST: Lungs are clear to auscultation bilaterally and free of wheezes, rales, or rhonchi. Heart rate is regular rhythm, there are no murmurs, clicks, rubs, or gallops. There is no chest wall tenderness. ABD: Abdomen is soft and nontender. There is no guarding or rebound. Bowel sounds are normal in all 4 quadrants. There is no mass or organomegaly. EXT: Full painless ROM of all extremities with no loss of sensation or strength. SKIN: Wide spread maculopapular pruritic rash most notable on abdomen, arms, legs Initial Vital Signs Initial Vital Signs: Vital Signs Temperature 98.4 F 07/09/20 03:55 Pulse Rate 96 H 07/09/20 03:55 Respiratory Rate 17 07/09/20 03:55 Blood Pressure 142/93 H 07/09/20 03:55 Pulse Oximetry 100 07/09/20 03:55 Course Orders Ordered: Discontinued Medications Famotidine (Pepcid) 20 mg in 50 mls @ 200 mls/hr IV NOW ONE Stop: 07/09/20 04:14 Last Infusion: 07/09/20 04:20 Dose: Infused Documented by: Methylprednisolone (Solu-Medrol 125 Mg Vial) 125 mg IV NOW ONE Stop: 07/09/20 04:00 Last Admin: 07/09/20 04:20 Dose: 125 mg Documented by: Vital Signs Vital signs: Vital Signs - 8 hr 07/09/20 03:55 Temperature 98.4 F Pulse Rate 96 H Respiratory Rate 17 Blood Pressure 142/93 H Pulse Oximetry 100 Discharge Plan Departure Patient Disposition: Home Clinical Impression: Allergic reaction Qualifiers: Encounter type: initial encounter Qualified Code(s): T78.40XA - Allergy, unspecified, initial encounter Discharge Date/Time: 07/09/20 04:27 Instructions: DI for General Allergic Reactions Activity Restrictions/Additional Instructions: *You have been diagnosed with [ generalized allergic reaction ] *Take medications as directed: 1. A prescription for an oral steroid has been sent to [facility] in [place] at your request. Additionally taking over the counter histamines will help. 2. A combination of over the counter antihistamines should be taken as well. Take an H2 nan such as Zantac/Pepcid daily for 1-2 weeks as well as a H1 nan daily. Maria M, Zyrtec, and Claritic are great options during the day as they won't make you sleepy. Benadryl is the classic antihistamine, but is best taken at night as it has the potential to make you a bit sleepy I have included contact information for the [facility] resource line so you can establish local primary care physician to follow-up with. Please return to the emergency department immediately for any facial swelling, tongue, throat swallowing, trouble breathing, or other bothersome symptoms Prescriptions: New prednisone 10 mg tablet See Rx Instructions .ROUTE .COMPLEX Qty: 30 RF: 0 No Action hydrocodone-acetaminophen 5-325 mg Tablet 1 tab PO Q4HR PRN (Reason: Pain, Mild (1-3)) Qty: 10 RF: 0 Referrals: [facility] Resources [Outside]
[2020-07-09 03:55] VITALS: BP 142/93; PULSE 96; RESP 17; TEMP 36.9; O2SAT 100; BMI 27.6
[2020-07-09] MEDS: FAMOTIDINE 20 MG/50 ML PIGGYBACK 200 MG IV (04:06)
[2020-07-09] MEDS: methylPREDNISolone 125 MG/2 ML VIAL IV (04:20)
[2020-07-09 04:25] VITALS: BP 134/73; PULSE 72; RESP 17; O2SAT 97
== END 2020-07-09 04:27 | disposition home or self-care (01) ==
PROVIDERS: Emergency Provider Emergency Medicine
DX: T78.40XA Allergy, unspecified, initial encounter (principal)
CPT/HCPCS: 96374; 96375; 99283; 99284; J2930